=== PATIENT | female | born 2000 | race African-American/Black ===

== ENCOUNTER 2025-02-11 05:14 | Emergency (ER) | payer BC ==
[~2025-02-11] VITALS: Ht 180.3 cm; Wt 107.7 kg
[2025-02-11 05:45] LABS: VENOUS BASE EXCESS -2.6 (-2.0-2.0); VENOUS HCO3 23.9 MMOL/L (23.0-27.0); VENOUS O2 SATURATION 77.2 % (60.0-80.0); VENOUS PARTIAL PRESSURE CO2 47.7 mmHg (38.0-50.0); VENOUS PARTIAL PRESSURE O2 45.0 mmHg (30.0-50.0); VENOUS PH 7.318 UNITS (7.330-7.430); VENOUS STANDARD HCO3 21.8 MMOL/L; VENOUS TOTAL CO2 25.4 MMOL/L (24.0-28.0)
[2025-02-11 05:50] LABS: BASO # 0.0 10^3/uL (0.0-0.2); BASO % 0.3 % (0.0-1.0); EOS # 0.2 10^3/uL (0.0-0.5); EOS % 1.6 % (0.0-3.0); LYMPH # 2.1 10^3/uL (1.5-5.0); LYMPH % 22.1 % (24.0-44.0); MONO # 0.5 10^3/uL (0.0-0.8); MONO % 5.4 % (2.0-8.0); NEUTROPHILS # 6.7 10^3/uL (1.5-8.5); NEUTROPHILS % 70.1 % (36.0-66.0); PLATELET COUNT, AUTOMATED 343 10^3/uL (150-450)
[2025-02-11 06:11] LABS: OSMOLALITY SERUM 314 MOSM/KG (275-295)
[2025-02-11 06:14] LABS: ESTIMATED AVERAGE GLUCOSE 301.0 MG/DL (60-110)
[2025-02-11 06:15] LABS: ACETONE/KETONE 0.13 MMOL/L (0.02-0.27)
[2025-02-11 06:18] LABS: ALT/SGPT 15 U/L (7.0-40); AST/SGOT 17 U/L (<34); CALCIUM LEVEL 8.6 MG/DL (8.5-10.1); CARBON DIOXIDE LEVEL 26 MMOL/L (20-31); CHLORIDE LEVEL 100 MMOL/L (98-107); CREATININE FOR GFR 0.73 MG/DL (0.55-1.30); GLOMERULAR FILTRATION RATE > 90.0 (>60); POTASSIUM SERUM 4.4 MMOL/L (3.5-5.1); SODIUM LEVEL 137 MMOL/L (136-145)
[2025-02-11] MEDS: NS (Normal Saline) 0.9% 1,000 ML IV ONE (06:40)
[2025-02-11] MEDS: ONDANSETRON 4MG/2ML VIAL IV ONE (06:41)
[2025-02-11 07:23] LABS: KETONE, URINE AUTO RFX NEGATIVE (NEGATIVE); LEUKOCYTE ESTERASE UR AUTO RFX NEGATIVE (NEGATIVE); NITRITE, URINE AUTO RFX NEGATIVE (NEGATIVE); RBC, URINE AUTO RFX 1 /HPF (0-3); SQUAM EPITHELIAL CELL UR AURFX 3 /HPF (0-6); WBC, URINE AUTO RFX 1 /HPF (0-3)
[2025-02-11] MEDS: HumuLIN R (REGULAR) INSULIN (NovoLIN R) **100 U/ML** PER UNIT IV ONE (07:28)
[2025-02-11 08:47] LABS: VENOUS BASE EXCESS -4.3 (-2.0-2.0); VENOUS HCO3 20.7 MMOL/L (23.0-27.0); VENOUS O2 SATURATION 91.8 % (60.0-80.0); VENOUS PARTIAL PRESSURE CO2 38.1 mmHg (38.0-50.0); VENOUS PARTIAL PRESSURE O2 65.0 mmHg (30.0-50.0); VENOUS PH 7.353 UNITS (7.330-7.430); VENOUS STANDARD HCO3 20.8 MMOL/L; VENOUS TOTAL CO2 21.9 MMOL/L (24.0-28.0)
[2025-02-11] MEDS ORDERED: ONDA-282 PO (09:17)
[2025-02-11 09:30] VITALS: BP 125/60; TEMP 97.7; O2SAT 100
== END 2025-02-11 09:41 | disposition home or self-care (01) ==
LOC: M ED 05:14
DX: A05.9 Bacterial foodborne intoxication, unspecified (principal); E11.8 Type 2 diabetes mellitus with unspecified complications; Z91.199 Patient's noncompliance with other medical treatment and regimen due to unspecified reason; Z88.2 Allergy status to sulfonamides
CPT/HCPCS: 80048; 80076; 81001; 82010; 82803; 83036; 83605; 83690; 83930; 85025; 93005; 93041; 94760; 96361; 96374; 96375; 99285; J1815; J2405